=== PATIENT | female | born 1965 | race African-American/Black ===

== ENCOUNTER 2023-08-14 13:36 | Emergency (ER) | payer OTHER ==
[~2023-08-14] VITALS: Ht 165.1 cm; Wt 74.0 kg
[2023-08-14 13:39] VITALS: BP 180/91; PULSE 96; RESP 20; TEMP 98.5; O2SAT 97
[2023-08-14] MEDS ORDERED: HYDROCODONE/ACETAMINOPHEN 5/325MG TABLET PO ONE (14:00)
[2023-08-14] MEDS ORDERED: HYDR-4001 MT (16:15)
[2023-08-14] MEDS ORDERED: CYCLOBENZAPRINE 10MG TABLET PO ONE (17:00)
== END 2023-08-14 17:50 | disposition home or self-care (01) ==
LOC: ER 14:12
DX: S16.1XXA Strain of muscle, fascia and tendon at neck level, initial encounter (principal); S40.012A Contusion of left shoulder, initial encounter; S00.83XA Contusion of other part of head, initial encounter; W10.1XXA Fall (on)(from) sidewalk curb, initial encounter; Y93.89 Activity, other specified; Y92.89 Other specified places as the place of occurrence of the external cause; Y99.8 Other external cause status
CPT/HCPCS: 73030; 99284; L0172